=== PATIENT | female | born 1950 | race Two or more races ===

== ENCOUNTER 2018-03-15 07:10 | Day surgery (SDC) | payer OTHER ==
[~2018-03-15 07:10] MED LIST: CLONAZEPAM1 MG PO; DOCUSATE SODIU100 MG PO; PERCOCET 5/3251 TAB PO
== END 2018-03-15 14:50 | disposition home or self-care (01) ==
LOC: AMB-ENDOS 07:10
DX: K57.30 Diverticulosis of large intestine without perforation or abscess without bleeding (principal); K64.1 Second degree hemorrhoids